=== PATIENT | female | born 1970 | race Caucasian/White ===

== ENCOUNTER 2018-11-15 01:15 | Inpatient (IN) ==
[2018-11-15] MEDS ORDERED: ALUM/MAG/SIMETH/LIDO VISC 1:1 30 ML BOTTLE PO STA (02:00)
[2018-11-15] MEDS ORDERED: SODIUM CHLORIDE 0.9% 1,000 ML IV STA (02:00)
[2018-11-15] MEDS ORDERED: ONDANSETRON 4 MG/2 ML VIAL IV STA (02:00)
[2018-11-15] MEDS ORDERED: KETOROLAC 30 MG/1 ML VIAL IV STA (02:00)
[2018-11-15] MEDS ORDERED: PANTOPRAZOLE 40 MG VIAL IV STA (02:00)
[2018-11-15] MEDS ORDERED: HYDROmorphone 2 MG/1 ML VIAL IV STA (02:00)
[2018-11-15 02:10] LABS: Basophils # 0.1 10*3/uL (0.0-0.2); Basophils % 1.5 % (0.0-0.8); Eosinophils % 1.2 % (0.00-10.9); Hematocrit 38.8 VOL% (35.7-47.0); Immature Granulocytes % 0.9 %; Immature Granulocytes Absolute 0.03 #; Lymphocytes # 1.6 10*3/uL (1.4-4.0); Lymphocytes % 47.9 % (21.3-54.2); Mean Corpuscular HGB Conc 33.5 GM/DL (32-36); Mean Corpuscular Volume 89.6 FL (87-102); Mean Platelet Volume 9.9 FL (9.6-12.0); Monocytes % 20.1 % (1.7-12.7); Neutrophils % 28.4 % (38.7-73.9); Platelet Count 286 T/CUMM (130-400); Red Blood Count 4.33 MC/CUMM (3.8-5.5); Red Cell Distribution Width 14.1 % (9.3-17.3); White Blood Count 3.3 T/CUMM (4-12)
[2018-11-15 02:43] LABS: Apearance,Urine CLOUDY (Clear); Bilirubin,Urine Negative (Negative); Blood, Urine Small mg/dL (Negative); Glucose,Urine (UA) Negative (Negative); Hyaline Casts,Urine 47 /LPF (0-3); Ketones,Urine Negative (Negative); Mucus,Urine Many /LPF (Occasional); Nitrite,Urine Negative (Negative); Protein,Urine 100 MG/DL; RBC,Urine 2 /HPF (0-4); Squamous Epithelial Cell,Urine Few /HPF (0-10); Urine Color Amber (Yellow); Urine Specific Gravity 1.025 (1.001-1.035); Urine Urobilinogen < 2.0 EU/DL (0.2-1.0); WBC,Urine 9 /HPF (0-6)
[2018-11-15 02:48] LABS: Alanine Aminotransferase 96 U/L (13-56); Albumin 3.5 G/DL (3.4-5.0); Alkaline Phosphatase 169 U/L (45-117); Amylase 33 U/L (25-115); Aspartate Amino Transferase 205 U/L (0-37); Blood Urea Nitrogen 5 MG/DL (7-18); Glucose 88 MG/DL (74-106); Total Protein 6.9 G/DL (6.4-8.3)
[2018-11-15 02:53] LABS: Band Neutrophils 8 % (0-10); Lymphocytes 50 % (20-55); Segmented Neutrophils 30 % (50-85)
[2018-11-15 02:54] LABS: Platelet Estimate Adequate; Total Cells Counted 100
[2018-11-15] MEDS ORDERED: POTASSIUM CHLORIDE 20 MEQ TABLET PO STA (03:46)
[2018-11-15] MEDS ORDERED: LORazepam 2 MG/1 ML VIAL IV PRN (05:27)
[2018-11-15] MEDS ORDERED: NICOTINE 21 MG/24 HR PATCH TRANSDERM PRN (05:27)
[2018-11-15] MEDS ORDERED: POTASSIUM CHLORIDE RIDER 10 MEQ in PREMIX 1 EACH IV PRN (05:27)
[2018-11-15] MEDS ORDERED: LEVOFLOXACIN INJ 500 MG in PREMIX 1 EACH IV SCH (05:30)
[2018-11-15] MEDS ORDERED: VANCOMYCIN INJ 1,000 MG in SODIUM CHLORIDE 0.9% 250 ML IV SCH (05:30)
[2018-11-15] MEDS: SODIUM CHLORIDE 0.9% 1,000 ML IV SCH ×4 (07:11→19:20)
[2018-11-15 07:14] LABS: Barbiturates Screen,Urine Negative (Negative); Benzodiazepines Screen,Urine Positive (Negative); Cannabinoid Screen,Urine Negative (Negative); Opiate Screen,Urine Negative (Negative); Phencyclidine Screen,Urine Negative (Negative)
[2018-11-15] MEDS ORDERED: MEROPENEM 1,000 MG in SYRINGE 1 EACH IV SCH (08:30)
[2018-11-15] MEDS ORDERED: ASPIRIN 325 MG TABLET ONE (08:49)
[2018-11-15] MEDS ORDERED: NITROGLYCERIN SL 0.4 MG TABLET SL ONE ×2 (08:49→08:51)
[2018-11-15] MEDS ORDERED: ASPIRIN EC 325 MG TABLET PO ONE (08:54)
[2018-11-15] MEDS ORDERED: VANCOMYCIN INJ 1,250 MG in SODIUM CHLORIDE 0.9% 250 ML IV SCH (09:00)
[2018-11-15 09:47] LABS: Troponin I 0.254 NG/ML (0.00-0.045)
[2018-11-15] MEDS: POTASSIUM CHLORIDE RIDER 10 MEQ in PREMIX 1 EACH IV SCH ×4 (10:16→15:15)
[2018-11-15] MEDS: PANTOPRAZOLE 40 MG VIAL IV SCH ×2 (10:16→22:05)
[2018-11-15] MEDS: ONDANSETRON 4 MG/2 ML VIAL IV PRN ×3 (10:17→19:47)
[2018-11-15] MEDS: ACETAMINOPHEN 325 MG TABLET PO PRN ×3 (11:19→22:09)
[2018-11-15] MEDS: PROMETHAZINE 25 MG/1 ML VIAL IM PRN (11:42)
[2018-11-15 12:09] LABS: Calcium 7.6 MG/DL (8.5-10.1); Osmolality,Calculated 274.4 MOS/KG (273-304)
[2018-11-15] MEDS ORDERED: DEXTROSE 50% 25 GM/50 ML VIAL IV ONE (12:40)
[2018-11-15] MEDS ORDERED: DEXTROSE 50% 25 GM/50 ML VIAL IV PRN (12:54)
[2018-11-15] MEDS: VANCOMYCIN 50 MG/ML 60 ML/BOTTLE PO SCH ×2 (13:46→18:05)
[2018-11-15] MEDS: LORazepam 2 MG/1 ML VIAL IV PRN (13:46)
[2018-11-16] MEDS: VANCOMYCIN 50 MG/ML 60 ML/BOTTLE PO SCH ×4 (00:15→18:05)
[2018-11-16] MEDS: SODIUM CHLORIDE 0.9% 1,000 ML IV SCH ×3 (03:28→21:43)
[2018-11-16] MEDS: ONDANSETRON 4 MG/2 ML VIAL IV PRN ×3 (05:35→21:37)
[2018-11-16 05:54] LABS: Basophils % 1.3 % (0.0-0.8); Eosinophils % 1.3 % (0.00-10.9); Hematocrit 34.1 VOL% (35.7-47.0); Hemoglobin 10.9 GM/DL (12.0-16.0); Immature Granulocytes % 0.7 %; Immature Granulocytes Absolute 0.01 #; Lymphocytes # 0.6 10*3/uL (1.4-4.0); Lymphocytes % 37.3 % (21.3-54.2); Mean Corpuscular Volume 94.5 FL (87-102); Mean Platelet Volume 10.4 FL (9.6-12.0); Monocytes % 21.3 % (1.7-12.7); Neutrophils % 38.1 % (38.7-73.9); Platelet Count 155 T/CUMM (130-400); Red Blood Count 3.61 MC/CUMM (3.8-5.5); Red Cell Distribution Width 14.1 % (9.3-17.3); White Blood Count 1.5 T/CUMM (4-12)
[2018-11-16 06:18] LABS: Albumin 2.8 G/DL (3.4-5.0); Bilirubin,Total 1.2 MG/DL (0.2-1.0); Calcium 8.4 MG/DL (8.5-10.1); Osmolality,Calculated 278.1 MOS/KG (273-304); Total Protein 5.7 G/DL (6.4-8.3)
[2018-11-16 06:23] LABS: Eosinophils 2 % (0-10); Lymphocytes 42 % (20-55); Segmented Neutrophils 43 % (50-85); Total Cells Counted 100
[2018-11-16 06:24] LABS: Ovalocytes Few; Platelet Estimate Adequate
[2018-11-16] MEDS: PANTOPRAZOLE 40 MG VIAL IV SCH ×2 (08:25→21:40)
[2018-11-16] MEDS: PROMETHAZINE 25 MG/1 ML VIAL IM PRN (08:25)
[2018-11-16] MEDS ORDERED: fentaNYL 100 MCG/2 ML VIAL ONE (09:57)
[2018-11-16] MEDS ORDERED: MIDAZOLAM 2 MG/2 ML VIAL ONE (09:57)
[2018-11-17] MEDS: VANCOMYCIN 50 MG/ML 60 ML/BOTTLE PO SCH ×3 (01:12→12:15)
[2018-11-17] MEDS: LORazepam 2 MG/1 ML VIAL IV PRN (03:04)
[2018-11-17] MEDS: SODIUM CHLORIDE 0.9% 1,000 ML IV SCH (06:36)
[2018-11-17 07:52] VITALS: BP 118/72
[2018-11-17] MEDS: PANTOPRAZOLE 40 MG VIAL IV SCH (08:03)
[2018-11-17] MEDS ORDERED: PANTOPRAZOLE 40 MG TABLET PO SCH (09:30)
[2018-11-17 09:36] LABS: Basophils % 0.9 % (0.0-0.8); Eosinophils # 0.1 10*3/uL (0.0-0.87); Eosinophils % 1.4 % (0.00-10.9); Hematocrit 38.4 VOL% (35.7-47.0); Immature Granulocytes % 0.2 %; Immature Granulocytes Absolute 0.01 #; Lymphocytes # 0.8 10*3/uL (1.4-4.0); Lymphocytes % 18.4 % (21.3-54.2); Mean Corpuscular HGB Conc 31.3 GM/DL (32-36); Mean Corpuscular Volume 95.5 FL (87-102); Mean Platelet Volume 10.5 FL (9.6-12.0); Monocytes % 6.8 % (1.7-12.7); Neutrophils % 72.3 % (38.7-73.9); Platelet Count 218 T/CUMM (130-400); Red Blood Count 4.02 MC/CUMM (3.8-5.5); Red Cell Distribution Width 14.4 % (9.3-17.3); White Blood Count 4.2 T/CUMM (4-12)
[2018-11-17] MEDS ORDERED: LIDOCAINE 2% 5 ML VIAL ONE (10:00)
[2018-11-17] MEDS ORDERED: PROPOFOL 200 MG/20 ML VIAL IV ONE (10:00)
[2018-11-17] MEDS ORDERED: ONDANSETRON 4 MG/2 ML VIAL ONE (10:00)
[2018-11-17 10:04] LABS: % Iron Saturation 30.7 % (18-50); Calcium 8.6 MG/DL (8.5-10.1); Osmolality,Calculated 271.5 MOS/KG (273-304)
[2018-11-17] MEDS: ONDANSETRON 4 MG/2 ML VIAL IV PRN (12:19)
== END 2018-11-17 15:56 | disposition home or self-care (01) | DRG 392 ==
LOC: N.ED 01:15 → SUATTDRO 05:27 → N.EDINP 05:27 → N.5E 05:59
PROVIDERS: ADMIT Hospitalist; ATTEND Internal Medicine